=== PATIENT | female | born 1950 | race Caucasian/White ===

== ENCOUNTER 2018-06-28 06:52 | Day surgery (SDC) | payer MEDICARE, BC ==
[~2018-06-28 06:52] MED LIST: Bupivacaine 0.5% 30 ML SDV ONE; Lidocaine 0.5% 50 ML SDV ONE; Midazolam 1 MG/ML 2 ML SDV ONE; Propofol 200 MG/20 ML SDV ONE; ceFAZolin 1 GM Vial ONE
[2018-06-28] MEDS ORDERED: Sodium Chloride 0.9% 1,000 ML IV SCH (07:00)
[2018-06-28] MEDS ORDERED: Sodium Chloride 0.9% 10 ML Syringe FLUSH PRN (07:00)
[2018-06-28] MEDS ORDERED: Propofol 200 MG/20 ML SDV ONE (07:33)
[2018-06-28] MEDS ORDERED: ceFAZolin 1 GM Vial IV ONE (08:12)
[2018-06-28] MEDS ORDERED: Propofol 200 MG/20 ML SDV IV ONE (08:12)
[2018-06-28] MEDS ORDERED: Midazolam 1 MG/ML 2 ML SDV IV ONE (08:12)
[2018-06-28] MEDS ORDERED: Lidocaine 0.5% 50 ML SDV INJECT ONE (08:12)
[2018-06-28] MEDS ORDERED: Bupivacaine 0.5% 10 ML SDV INFILT ONE (08:44)
--- NOTE | 2018-06-28 09:12 | PCM.OPNOTE ---
- General Post-Op/Procedure Note Date of Surgery/Procedure: 06/28/18 Operative Procedure(s): Right carpal tunnel decompression. Anesthesia Technique: Regional Block Primary Surgeon: Paula Kc Complications: None Condition: Good Free Text/Narrative:: INFORMED CONSENT: Patient is here today for elective right carpal tunnel decompression. All aspects of this procedure have been discussed with the patient. All possible complications were discussed by me. These include infection, pain, bleeding, nerve injury and other unknown complications, lack of relief of symptoms, reoperation and other unknown complications.. Anesthetic complications were handled by anesthesia department. The patient understands fully well. Patient did not have any further questions for me at the end of my interview. The patient wishes for me to proceed. PROCEDURE: Patient was kept in the supine position and the satisfactory [place] block anesthesia was administered. The right arm was thoroughly prepped and draped in the usual fashion. The tourniquet was placed to the right upper arm and a vertical incision was made in the palm directly distal to the distal wrist crease. The skin incision was deepened through the subcutaneous tissue, the palmar aponeurosis was incised and then we came down upon the transverse carpal ligament, which was opened along the line of the skin incision. Extreme care was taken to protect the median nerve below. Careful neurolysis was performed meticulously. Approximately 2 cc of Marcaine 0.5% was instilled into the wound and skin was closed using mattress sutures with 3.0 Nylon. The tourniquet was released. A sterile pressure dressing was applied. The patient tolerated the procedure well and was transferred to the recovery room in excellent condition.
[2018-06-28 10:27] VITALS: BP 158/83
== END 2018-06-28 10:25 | disposition home or self-care (01) ==
LOC: KA.SDS 06:52
PROVIDERS: ATTEND Family Medicine
DX: G56.01 Carpal tunnel syndrome, right upper limb (principal); I10 Essential (primary) hypertension; E11.9 Type 2 diabetes mellitus without complications; E78.00 Pure hypercholesterolemia, unspecified; K21.9 Gastro-esophageal reflux disease without esophagitis; F17.200 Nicotine dependence, unspecified, uncomplicated; M17.0 Bilateral primary osteoarthritis of knee; E66.01 Morbid (severe) obesity due to excess calories; Z68.41 Body mass index [BMI] 40.0-44.9, adult; Z88.0 Allergy status to penicillin; Z88.1 Allergy status to other antibiotic agents; Z91.048 Other nonmedicinal substance allergy status; Z79.82 Long term (current) use of aspirin; Z79.84 Long term (current) use of oral hypoglycemic drugs; Z79.899 Other long term (current) drug therapy
CPT/HCPCS: 01810; 82962; J0690; J2001; J2250; J2704; J3490; J7030

== ENCOUNTER 2018-12-15 15:45 | Emergency (ER) | payer MEDICARE, BC ==
--- NOTE | 2018-12-15 16:56 | CT ---
[id number] CT/CT Head WO IV EXAM: CT Head WO IV CLINICAL DATA: NEUROLOGIC DEFICIT COMPARISON: NO PREVIOUS SIMILAR EXAM IS AVAILABLE FOR COMPARISON. FINDINGS: There is no mass or mass effect. There is no hemorrhage or hydrocephalus. There are no extra-axial fluid collections. There are no sites of abnormal attenuation. IMPRESSION: NO PLAIN CT EVIDENCE OF ACUTE INTRACRANIAL PROCESS. Mark Adame MD 12/15/18 [id number] Thank you for allowing us to participate in the care of your patient.
--- NOTE | 2018-12-15 17:05 | EDM.PDOC ---
ED HPI GENERAL MEDICAL PROBLEM - General Chief Complaint: General Stated Complaint: confusion Time Seen by Provider: 12/15/18 16:00 Source of Information: Reports: Other (friend) History Limitations: Reports: Altered Mental Status - History of Present Illness INITIAL COMMENTS - FREE TEXT/NARRATIVE: 68-year-old female is brought in by one of her friends today for evaluation of confusion. Patient was at a [facility] approximately 3030 when she started to have present with some confusion and difficulty with her speech. 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 This was on MRI from July 2018. She has no motor weaknesses of the upper or lower extremities. She is able to state to me her date of and her name she has mild difficulty with the current year. She does present with a mild aphasia and mild dysarthria. Her NIH scale is 2. Onset: Today Onset Date: 12/15/18 Onset Time: 15:20 Duration: Minutes:, Constant Location: Reports: Generalized Severity: Mild Improves with: Reports: None Worsens with: Reports: None Associated Symptoms: Reports: Confusion. Denies: Chest Pain, Diaphoresis, Fever /Chills, Headaches, Nausea/Vomiting, Seizure, Shortness of Breath, Syncope, Weakness - Related Data Allergies Allergy/AdvReac Type Severity Reaction Status Date / Time adhesive Allergy Itching Verified 06/27/18 11:16 amoxicillin trihydrate Allergy Diarrhea Verified 03/09/16 17:14 [From Augmentin] cefaclor [From Ceclor] Allergy Hives Verified 03/09/16 17:14 potassium clavulanate Allergy Diarrhea Verified 03/09/16 17:14 [From Augmentin] Home Meds: Home Meds Cetirizine [ZyrTEC] 10 mg PO DAILY 04/27/14 [History] DULoxetine [Cymbalta] 60 mg PO BID 04/27/14 [History] Lisinopril 20 mg PO DAILY 04/27/14 [History] Montelukast Sodium [Singulair] 10 mg PO DAILY 04/27/14 [History] Simvastatin [Zocor] 40 mg PO DAILY 04/27/14 [History] amLODIPine Besylate [Norvasc] 2.5 mg PO DAILY 03/21/15 [History] metFORMIN [Glucophage XR] 1,000 mg PO BIDMEALS 04/27/14 [History] traZODone 50 - 150 mg PO BEDTIME PRN 04/27/14 [History] Albuterol [Proventil Neb Soln] 2.5 mg NEB Q4HR PRN 10/09/15 [History] Fluticasone Propionate [Flonase] 2 spray NASBOTH BID 10/09/15 [History] glipiZIDE [Glipizide Xl] 10 mg PO WITHBREAKFAST 10/09/15 [History] lamoTRIgine [Lamictal] 200 mg PO BEDTIME 10/09/15 [History] Albuterol [Ventolin HFA] 2 puff INH Q4H PRN 03/09/16 [History] Omeprazole 20 mg PO BIDAC PRN 03/09/16 [History] Aspirin [Ecotrin] 81 mg PO DAILY 06/27/18 [History] Diclofenac Sodium [Voltaren 1%] 1 applic TP QID PRN 06/27/18 [History] Pseudoephedrine HCl [Pseudoephedrine ER] 120 mg PO BID 06/27/18 [History] Trolamine Salicylate 85 gm TP ASDIRECTED PRN 06/27/18 [History] traMADol [Ultram] 50 mg PO BID PRN 06/27/18 [History] Past Medical History HEENT History: Reports: Allergic Rhinitis, Impaired Vision Cardiovascular History: Reports: Heart Murmur, High Cholesterol, Hypertension Respiratory History: Reports: Bronchitis, Recurrent Gastrointestinal History: Reports: Hemorrhoids Genitourinary History: Reports: None [employer]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 Neurological History: Reports: Migraines Psychiatric History: Reports: Bipolar, Mood Swings Endocrine/Metabolic History: Reports: Diabetes, Type II Dermatologic History: Reports: Psoriasis - Infectious Disease History Infectious Disease History: Reports: Shingles - Past Surgical History GI Surgical History: Reports: None Female Surgical History: Reports: Hysterectomy Neurological Surgical History: Reports: None Musculoskeletal Surgical History: Reports: Carpal Tunnel Dermatological Surgical History: Reports: None Social & Family History - Family History Family Medical History: Noncontributory - Tobacco Use Smoking Status *Q: Current Every Day Smoker Years of Tobacco use: 45 Packs/Tins Daily: 1.5 Second Hand Smoke Exposure: Yes - Caffeine Use Caffeine Use: Reports: Coffee - Recreational Drug Use Recreational Drug Use: No ED ROS GENERAL - Review of Systems Review Of Systems: See Below Constitutional: Denies: Fever, Chills, Weakness, Diaphoresis HEENT: Reports: Glasses. Denies: Vertigo, Vision Change Respiratory: Denies: Shortness of Breath Cardiovascular: Denies: Chest Pain, Lightheadedness, Palpitations, Syncope Endocrine: Reports: High Glucose GI/Abdominal: Denies: Abdominal Pain, Nausea, Vomiting : Reports: No Symptoms Musculoskeletal: Reports: No Symptoms Skin: Reports: No Symptoms Neurological: Reports: Confusion, Trouble Speaking (Word confusion). Denies: Headache, Numbness, Paresthesia, Pre-Existing Deficit, Seizure, Syncope Psychiatric: Reports: No Symptoms Hematologic/Lymphatic: Reports: No Symptoms ED EXAM, NEURO - Physical Exam Exam: See Below Exam Limited By: Altered Mental Status General Appearance: Alert, No Apparent Distress, Obese, Other (She is alert to person, place. She has had difficulty with time of year) Eye Exam: Bilateral Eye: EOMI, PERRL Ears: Normal External Exam, Hearing Grossly Normal Nose: Normal Inspection Throat/Mouth: Normal Inspection, Normal Lips, Normal Voice, No Airway Compromise Head Exam: Atraumatic, Normocephalic Neck: Normal Inspection, Supple, Non-Tender, Full Range of Motion. No: Carotid Bruit, Lymphadenopathy (L), Lymphadenopathy (R) Respiratory/Chest: No Respiratory Distress, Lungs Clear Cardiovascular: Normal Peripheral Pulses, Regular Rate, Rhythm GI/Abdominal: Normal Bowel Sounds, Soft, Non-Tender, No Mass, Other (Abdomen obese) Neurological: Alert, Normal Mood/Affect, Normal Dorsiflexion, CN II-XII Intact, Normal Plantar Flexion, Normal Reflexes, No Motor/Sensory Deficits. No: Oriented x 3 DTR: 1+: Bicep (R), Bicep (L), Tricep (R), Tricep (L), Patella (R), Patella (L) , Achilles (R), Achilles (L) Back Exam: Normal Inspection Extremities: Normal Inspection Psychiatric: Normal Affect, Normal Mood Skin Exam: Warm, Dry, Intact, Normal Color, No Rash EKG INTERPRETATION EKG Date: 12/15/18 Time: 16:50 Rhythm: NSR Rate (Beats/Min): 68 P-Wave: Present QRS: Normal ST-T: Normal QT: Normal Comparison: NA - No Prior EKG EKG Interpretation Comments: Normal sinus rhythm. Left anterior fascicular block Abnormal ECG Course - Vital Signs Last Recorded V/S: Last Vital Signs Temp 97.8 F 12/15/18 16:00 Pulse 64 12/15/18 16:00 Resp 18 12/15/18 16:00 BP 177/78 H 12/15/18 16:00 Pulse Ox 99 12/15/18 16:00 - Orders/Labs/Meds Orders: Active Orders 24 hr Category Date Time Status EKG Documentation Completion [RC] ASDIRECTED Care 12/15/18 16:47 Active Sodium Chloride 0.9% [Normal Saline] 1,000 ml Med 12/15/18 17:30 Active IV ASDIRECTED EKG 12 Lead [EK] Routine Ther 12/15/18 16:47 Ordered Medication Orders Sodium Chloride (Normal Saline) 1,000 mls @ 150 mls/hr IV ASDIRECTED MICHELLE Labs: Laboratory Tests 12/15/18 12/15/18 12/15/18 Range/Units 16:42 17:00 17:00 WBC 9.11 (5.00-10.00) 10^3/uL RBC 4.68 (3.80-5.50) 10^6/uL Hgb 14.7 (12.0-16.0) g/dL Hct 42.3 (37.0-47.0) % MCV 90.4 D (82.0-92.0) fL MCH 31.4 H (27.0-31.0) pg MCHC 34.8 (32.0-36.0) g/dL RDW 13.8 (11.5-14.5) % Plt Count 275 (150-400) 10^3/uL MPV 12.0 H (7.4-10.4) fL Immature Gran % (Auto) 0.2 (0.0-5.0) % Neut % (Auto) 66.2 (50.0-70.0) % Lymph % (Auto) 23.9 (20.0-40.0) % [place] % (Auto) 8.5 H (2.0-8.0) % Eos % (Auto) 0.8 L (1.0-3.0) % Baso % (Auto) 0.4 (0.0-1.0) % Immature Gran # (Auto) 0.02 (0.00-0.50) 10^3/uL Neut # (Auto) 6.03 (2.50-7.00) 10^3/uL Lymph # (Auto) 2.18 (1.00-4.00) 10^3/uL [place] # (Auto) 0.77 (0.10-0.80) 10^3/uL Eos # (Auto) 0.07 L (0.10-0.30) 10^3/uL Baso # (Auto) 0.04 (0.00-0.10) 10^3/uL PT (8.9-11.4) SEC INR (0.9-1.1) APTT (23.1-31.9) SEC Sodium 141 (136-145) mmol/L Potassium 4.6 (3.3-5.3) mmol/L Chloride 108 (98-115) mmol/L Carbon Dioxide 23.3 (21.0-32.0) mmol/L Anion Gap 14.3 (5-15) mmol/L BUN 17 (6-25) mg/dL Creatinine 0.74 (0.51-1.17) mg/dL Est Cr Clr Drug Dosing 70.01 mL/min Estimated GFR (MDRD) > 60 mL/min Glucose 108 H (75 - 99) mg/dL POC Glucose 107 H (74-106) mg/dl Calcium 9.1 (8.7-10.3) mg/dL Troponin I 0.09 H* (0.00-0.070) ng/mL Specimen Type Urine Color (YELLOW) Urine Appearance (CLEAR) Urine pH (5.0-9.0) Ur Specific [place] (1.005-1.030) Urine Protein (NEGATIVE) mg/dL Urine Glucose (UA) (NEGATIVE) mg/dL Urine Ketones (NEGATIVE) mg/dL Urine Occult Blood (NEGATIVE) Urine Nitrite (NEGATIVE) Urine Bilirubin (NEGATIVE) Urine Urobilinogen (0.2-1.0) E.U./dL Ur Leukocyte Esterase (NEGATIVE) Urine RBC (0-5) /HPF Urine WBC (0-5) /HPF Ur Epithelial Cells /LPF Urine Bacteria (NONE TO FEW) /HPF 11/08/19 11/08/19 Range/Units 17:00 17:30 WBC (5.00-10.00) 10^3/uL RBC (3.80-5.50) 10^6/uL Hgb (12.0-16.0) g/dL Hct (37.0-47.0) % MCV (82.0-92.0) fL MCH (27.0-31.0) pg MCHC (32.0-36.0) g/dL RDW (11.5-14.5) % Plt Count (150-400) 10^3/uL MPV (7.4-10.4) fL Immature Gran % (Auto) (0.0-5.0) % Neut % (Auto) (50.0-70.0) % Lymph % (Auto) (20.0-40.0) % [place] % (Auto) (2.0-8.0) % Eos % (Auto) (1.0-3.0) % Baso % (Auto) (0.0-1.0) % Immature Gran # (Auto) (0.00-0.50) 10^3/uL Neut # (Auto) (2.50-7.00) 10^3/uL Lymph # (Auto) (1.00-4.00) 10^3/uL [place] # (Auto) (0.10-0.80) 10^3/uL Eos # (Auto) (0.10-0.30) 10^3/uL Baso # (Auto) (0.00-0.10) 10^3/uL PT 10.2 (8.9-11.4) SEC INR 1.0 (0.9-1.1) APTT 22.0 L (23.1-31.9) SEC Sodium (136-145) mmol/L Potassium (3.3-5.3) mmol/L Chloride (98-115) mmol/L Carbon Dioxide (21.0-32.0) mmol/L Anion Gap (5-15) mmol/L BUN (6-25) mg/dL Creatinine (0.51-1.17) mg/dL Est Cr Clr Drug Dosing mL/min Estimated GFR (MDRD) mL/min Glucose (75 - 99) mg/dL POC Glucose (74-106) mg/dl Calcium (8.7-10.3) mg/dL Troponin I (0.00-0.070) ng/mL Specimen Type Urinvoid Urine Color Yellow (YELLOW) Urine Appearance Slightly cloudy H (CLEAR) Urine pH 5.5 (5.0-9.0) Ur Specific [place] 1.015 (1.005-1.030) Urine Protein Negative (NEGATIVE) mg/dL Urine Glucose (UA) Negative (NEGATIVE) mg/dL Urine Ketones Negative (NEGATIVE) mg/dL Urine Occult Blood Negative (NEGATIVE) Urine Nitrite Negative (NEGATIVE) Urine Bilirubin Negative (NEGATIVE) Urine Urobilinogen 0.2 (0.2-1.0) E.U./dL Ur Leukocyte Esterase Negative (NEGATIVE) Urine RBC 0-5 (0-5) /HPF Urine WBC 0-5 (0-5) /HPF Ur Epithelial Cells Many H /LPF Urine Bacteria Few (NONE TO FEW) /HPF Meds: Medications Generic Name Dose Route Start Last Admin Trade Name Freq PRN Reason Stop Dose Admin Sodium Chloride 1,000 mls @ 150 mls/hr 12/15/18 17:30 Normal Saline IV ASDIRECTED MICHELLE Discontinued Medications Generic Name Dose Route Start Last Admin Trade Name Freq PRN Reason Stop Dose Admin Aspirin 324 mg 12/15/18 17:40 12/15/18 18:00 Aspirin PO 12/15/18 17:41 324 mg ONETIME ONE Administration - Radiology Interpretation Free Text/Narrative:: CT head without IV contrast Findings: There is no mass or mass effect There is no hemorrhage or hydrocephalus There are no extra-axial fluid collections There are no sites of abnormal attenuation Impression: No plain CT evidence of acute intracranial process CT Results Date: 12/15/18 CT Results Time: 16:52 - Re-Assessments/Exams Free Text/Narrative Re-Assessment/Exam: 12/15/18 18:18 TPA was started. Departure - Departure Time of Disposition: 18:30 Disposition: DC/Tfer to Acute Hospital 02 Condition: Fair Clinical Impression: Stroke determined by clinical assessment, Elevated troponin - Discharge Information Referrals: Karissa Helton PA-C [Primary Care Provider] - Forms: ED Department Discharge - My Orders Last 24 Hours: My Active Orders 12/15/18 16:47 EKG Documentation Completion [RC] ASDIRECTED EKG 12 Lead [EK] Routine 12/15/18 17:30 Sodium Chloride 0.9% [Normal Saline] 1,000 ml IV ASDIRECTED - Assessment/Plan Last 24 Hours: My Active Orders 12/15/18 16:47 EKG Documentation Completion [RC] ASDIRECTED EKG 12 Lead [EK] Routine 12/15/18 17:30 Sodium Chloride 0.9% [Normal Saline] 1,000 ml IV ASDIRECTED Assessment:: Expressive dysphasia Mild dysarthria Possible stroke, NIH scale of 2 Mildly elevated troponin Plan: 1. Patient was given TPA as recommended by neurology 2. Patient will be transferred by ground ambulance to [facility] to the emergency room
[2018-12-15] MEDS ORDERED: Sodium Chloride 0.9% 1,000 ML IV SCH (17:30)
[2018-12-15 17:37] LABS: ANION GAP 14.3 mmol/L (5-15); CHLORIDE,CL 108 mmol/L (98-115); SODIUM,NA 141 mmol/L (136-145)
[2018-12-15] MEDS ORDERED: Aspirin 81 MG Tab.Chew PO ONE (17:40)
[2018-12-15] MEDS ORDERED: Central TPN 1 ML IV SCH (18:30)
[2018-12-15 19:49] VITALS: BP 127/59; PULSE 76
== END 2018-12-15 19:15 ==
LOC: KA.ED 15:45
DX: I63.9 Cerebral infarction, unspecified (principal); R47.01 Aphasia; R47.1 Dysarthria and anarthria; R47.02 Dysphasia; R79.89 Other specified abnormal findings of blood chemistry; R29.702 NIHSS score 2; E78.00 Pure hypercholesterolemia, unspecified; I10 Essential (primary) hypertension; E11.9 Type 2 diabetes mellitus without complications; F17.210 Nicotine dependence, cigarettes, uncomplicated; Z79.82 Long term (current) use of aspirin; Z79.84 Long term (current) use of oral hypoglycemic drugs; Z79.899 Other long term (current) drug therapy; Z88.0 Allergy status to penicillin; Z88.1 Allergy status to other antibiotic agents; Z91.048 Other nonmedicinal substance allergy status
CPT/HCPCS: 37195; 70450; 80048; 81001; 82962; 84484; 85025; 85610; 85730; 93005; 99284; 99285; A9270; J2997